=== PATIENT | female | born 1975 | race Caucasian/White ===

== ENCOUNTER 2016-09-27 17:35 | Emergency (ER) | payer SELFPAY ==
[~2016-09-27] VITALS: Ht 142.2 cm; Wt 122.0 kg
[2016-09-27 17:39] VITALS: BP 167/80; PULSE 80; RESP 18; TEMP 98.9; O2SAT 96
--- NOTE | 2016-09-27 17:41 | PD ---
Physical Exam Time Seen by Provider: 17:39 Narrative 41 y/o female presents for evaluation of headache, dizziness since yesterday. Vital signs reviewed. Seen at triage desk. Awaiting bed placement. Data Data Last Documented VS Vital Signs Date Time Temp Pulse Resp B/P Pulse Ox O2 Delivery O2 Flow Rate FiO2 09/27/16 17:39 98.9 80 18 167/80 96 MDM Medical Record Reviewed: Yes Supervised Visit with HUSSAIN: Bk Orozco September 27, 2016 17:41
[2016-09-27] MEDS ORDERED: IBUPROFEN 800 MG TAB PO ONE (18:15)
[2016-09-27] MEDS ORDERED: MECLIZINE HCL 25 MG TAB PO ONE (18:15)
--- NOTE | 2016-09-27 18:20 | PD ---
HPI Chief Complaint: Dizziness Time Seen by Provider: 18:14 Travel History International Travel<30 days: No Contact w/Intl Traveler<30days: No Traveled to known affect area: No History of Present Illness HPI Patient is 41-year-old female presenting to emergency for evaluation of dizziness and headache. Patient states headache started yesterday evening, she felt dizzy almost as if she will had been drinking alcohol. The bed felt better upon awakening then later in the morning it started up again with the dizziness which was worse with head movement. Patient states she feels as if the room is spinning. She had not taken anything for the headache pain, she normally takes Tylenol. Patient states that she didn't want take any medications for the pain because she wants to get a job and doesn't want the medications to interfere with that. Patient reports history of depression, she has stopped all of her psych medications. She recently moved to the area and has no primary care provider. PFSH Past Medical History Depression: Yes Insomnia: Yes ?: Not Tubal Ligation: Yes Past Surgical History Section: Yes Cholecystectomy: Yes Hysterectomy: Yes Other Surgery: Yes (TUMOR REMOVAL LEFT ARM) Social History Alcohol Use: Yes (OCCASSIOANL) Tobacco Use: Yes (05/30 PPD) Substance Use: No Allergies-Medications (Allergen,Severity, Reaction): Coded Allergies: Fioricet (Verified Allergy, Severe, Hives, 09/27/16) Geodon (Verified Allergy, Severe, Chest Pain, 09/27/16) Sulfa (Verified Allergy, Severe, Nausea/Vomiting, 09/27/16) Uncoded Allergies: limictal (Adverse Reaction, Severe, Swelling, 09/27/16) Review of Systems Except as stated in HPI: all other systems reviewed are Neg HENT: Positive: Headaches Neurologic: Positive: Dizziness, Headache, No: Focal Abnormalities, Change in Mentation, Slurred Speech, Paresthesia, Sensory Disturbance Psychiatric: Positive: Depression Physical Exam Narrative GENERAL: Overweight, well-developed, alert female. Appears tearful, in no acute distress. SKIN: Focused skin assessment warm/dry. HEAD: Atraumatic. Normocephalic. EYES: Pupils equal and round. No scleral icterus. No injection or drainage. ENT: No nasal bleeding or discharge. Mucous membranes pink and moist. NECK: Trachea midline. No JVD. CARDIOVASCULAR: Regular rate and rhythm. No murmur appreciated. RESPIRATORY: No accessory muscle use. Clear to auscultation. Breath sounds equal bilaterally. GASTROINTESTINAL: Abdomen soft, non-tender, nondistended. Hepatic and splenic margins not palpable. MUSCULOSKELETAL: No obvious deformities. No clubbing. No cyanosis. No edema. NEUROLOGICAL: Awake and alert. No obvious cranial nerve deficits. Motor grossly within normal limits. Normal speech. PSYCHIATRIC: Depressed mood and affect; insight and judgment normal. Data Data Last Documented VS Vital Signs Date Time Temp Pulse Resp B/P Pulse Ox O2 Delivery O2 Flow Rate FiO2 09/27/16 19:40 68 18 136/70 92 20 171/96 85 18 165/84 09/27/16 17:59 Room Air 09/27/16 17:[address] Brain W/O Iv Contrast(Rout) (09/27/16 ) Meclizine (Antivert) (09/27/16 18:15) Ibuprofen (Motrin) (09/27/16 18:15) MDM Medical Decision Making Medical Screen Exam Complete: Yes Emergency Medical Condition: Yes Interpretation(s) Vital Signs Date Time Temp Pulse Resp B/P Pulse Ox O2 Delivery O2 Flow Rate FiO2 09/27/16 17:59 18 Room Air 09/27/16 17:39 98.9 80 18 167/80 96 Differential Diagnosis Dizziness versus migraine versus BPV versus TIA versus CVA versus other Narrative Course Patient is a 41-year-old female presenting to the emergency department for evaluation of dizziness and headache. Patient reports it feels as if the room is spinning. Her vital signs are stable, orthostatic vital signs are negative. CT scan ordered and pending. Patient given meclizine and ibuprofen. CT scan of brain is negative for acute abnormality. She was discharged home with a prescription for meclizine and Valium. She is encouraged to follow-up with a primary doctor, she was given written information regarding the [facility]. She was encouraged to return to emergency department immediately for any new or worsening symptoms. Patient and mother verbalized understanding of these instructions. Furthermore patient was encouraged to seek psychiatric help for her depression. Patient is not suicidal or homicidal. She has a good support system at home. Patient is stable for discharge. Diagnosis Primary Impression: Vertigo Additional Impression: Elevated blood pressure reading Referrals: [facility] 2 days Patient Instructions: Benign Paroxysmal Positional Vertigo (ED), General Instructions Additional Instructions: Follow-up at [facility] Take medications as directed and as needed Return to emergency department for any new or worsening symptoms Her blood pressure was elevated in the emergency department, follow-up with a primary doctor for further evaluation and management if needed. Med/Other Pt SpecificInfo: Prescription(s) given Scripts Meclizine 25 Mg Tab25 Mg PO TID PRN (VERTIGO) 10 Days Ref 0 Prov:Mary Modi 09/27/16 Diazepam (Valium)5 Mg Tab5 Mg PO BID PRN (VERTIGO) #10 TAB Ref 0 Prov:Mohit Sandhu MD 09/27/16 Disposition: 01 DISCHARGE HOME Condition: Stable Mary Modi September 27, 2016 18:20
[2016-09-27 19:40] VITALS: BP_SYST 136; BP_SYST 165; BP_SYST 171; BP_DIAS 70; BP_DIAS 84; BP_DIAS 96; RESP 18; RESP 20
--- NOTE | 2016-09-27 20:19 | RADRPT ---
EXAM DATE/TIME: 09/27/2016 19:29 [facility] COMPARISON: No previous studies available for comparison. INDICATIONS : Dizziness. RADIATION DOSE: 42.58 CTDIvol (mGy) MEDICAL HISTORY : None SURGICAL HISTORY : Hysterectomy. ENCOUNTER: Initial ACUITY: 2 days PAIN SCALE: 4/10 LOCATION: cranial TECHNIQUE: Multiple contiguous axial images were obtained of the head. Using automated exposure control and adj ustment of the mA and/or kV according to patient size, radiation dose was kept as low as reasonably a chievable to obtain optimal diagnostic quality images. FINDINGS: CEREBRUM: The ventricles are normal for age. No evidence of midline shift, mass lesion, hemorrhage or acute in farction. No extra-axial fluid collections are seen. POSTERIOR FOSSA: The cerebellum and brainstem are intact. The 4th ventricle is midline. The cerebellopontine angle i s unremarkable. EXTRACRANIAL: The visualized portion of the orbits is intact. SKULL: The calvaria is intact. No evidence of skull fracture. CONCLUSION: No acute disease. Nam Chase MD on September 27, 2016 at 20:16 Board Certified Radiologist. This report was verified electronically.
[2016-09-27] MEDS ORDERED: DIAZ5 PO (20:32)
[2016-09-27] MEDS ORDERED: MECL-62 PO (20:33)
== END 2016-09-27 21:15 | disposition home or self-care (01) ==
LOC: NEPD 17:35
DX: R42 Dizziness and giddiness (principal); R03.0 Elevated blood-pressure reading, without diagnosis of hypertension; F17.210 Nicotine dependence, cigarettes, uncomplicated
CPT/HCPCS: 70450

== ENCOUNTER 2017-04-16 20:43 | Emergency (ER) | payer SELFPAY ==
[~2017-04-16] VITALS: Ht 144.8 cm; Wt 97.0 kg
[~2017-04-16 20:43] MED LIST: DIAZ5 PO; MECL-62 PO
[2017-04-16 20:44] VITALS: BP 136/91; PULSE 82; RESP 16; TEMP 98.5; O2SAT 98
[2017-04-16] MEDS ORDERED: WELL200T PO (21:02)
[2017-04-16] MEDS ORDERED: FENO54TA PO (21:02)
--- NOTE | 2017-04-16 21:07 | PD ---
HPI . Knee injury Chief Complaint: Injury Time Seen by Provider: 20:58 Travel History International Travel<30 days: No Contact w/Intl Traveler<30days: No Traveled to known affect area: No History of Present Illness HPI This patient presents with a chief complaint of left knee injury. She twisted it getting out of a car. It occurred just prior to arrival. She states that she came straight here after it happened. Therefore, she has not done anything for it prior to arrival. She is unable to comment on whether or not there are any modifying factors. She rates the pain 8/10. She states that she has some numbness on the left lateral aspect of her thomas. PFSH Past Medical History Depression: Yes Insomnia: Yes Immunizations Current: Yes Tetanus Vaccination: Unknown Influenza Vaccination: No ?: Not Tubal Ligation: Yes Past Surgical History Section: Yes Cholecystectomy: Yes Hysterectomy: Yes Other Surgery: Yes (TUMOR REMOVAL LEFT ARM) Social History Alcohol Use: Yes (OCCASSIOANL) Tobacco Use: Yes (1/2 PPD) Substance Use: No Allergies-Medications (Allergen,Severity, Reaction): Coded Allergies: Sulfa (Sulfonamide Antibiotics) (Verified Allergy, Severe, 04/16/17) acetaminophen (Verified Allergy, Severe, Hives, 04/16/17) butalbital (Verified Allergy, Severe, Hives, 04/16/17) caffeine (Verified Allergy, Severe, Hives, 04/16/17) ziprasidone (Unverified Allergy, Severe, Chest Pain, 04/16/17) Uncoded Allergies: limictal (Adverse Reaction, Severe, Swelling, 09/27/16) Reported Meds & Prescriptions Reported Meds & Active Scripts Active Valium (Diazepam) 5 Mg Tab 5 Mg PO BID PRN Reported Fenofibrate 54 Mg Tab 75 Mg PO DAILY Wellbutrin SR 12 HR (Bupropion HCl) 200 Mg Tab 300 Mg PO BID Review of Systems Except as stated in HPI: all other systems reviewed are Neg Musculoskeletal: Positive: Arthralgias Neurologic: Positive: Paresthesia Physical Exam Narrative GENERAL: Awake and alert and in no acute distress. SKIN: Warm and dry. No bruising or abrasions noted. HEAD: Normocephalic/atraumatic. EYES: Pupils are equal. Extraocular movements are intact. NECK: Normal range of motion. CARDIOVASCULAR: Regular rate and rhythm. RESPIRATORY: Nonlabored respirations. MUSCULOSKELETAL: Left knee is normally aligned. There is no swelling. There is no point tenderness. The knee is stable. She is distally neurovascularly intact. NEUROLOGICAL: Nonfocal. PSYCHIATRIC: Appropriate mood and affect. Data Data Last Documented VS Vital Signs Date Time Temp Pulse Resp B/P (MAP) Pulse Ox O2 Delivery O2 Flow Rate FiO2 04/16/17 20:44 98.5 82 16 136/91 (106) 98 Room Air Orders Orders Knee, Complete (4vws) (04/16/17 21:03) Ibuprofen (Motrin) (04/16/17 21:15) MDM Medical Decision Making Medical Screen Exam Complete: Yes Emergency Medical Condition: Yes Differential Diagnosis Differential diagnosis of extremity trauma includes but is not limited to fracture, sprain or strain, dislocation, contusion Narrative Course This patient presents with a right knee injury. X-rays pending. Left knee series within normal limits. Diagnosis Primary Impression: Left knee sprain Qualified Codes: S83.92XA - Sprain of unspecified site of left knee, initial encounter Patient Instructions: General Instructions, Knee Sprain (DC), RICE Therapy (ED) Disposition: 01 DISCHARGE HOME Condition: Stable Lotus Velasquez MD Apr 16, 2017 21:07
[2017-04-16] MEDS ORDERED: IBUPROFEN 800 MG TAB PO ONE (21:15)
--- NOTE | 2017-04-16 21:21 | RADRPT ---
EXAM DATE/TIME: 04/16/2017 21:10 [facility] COMPARISON: No previous studies available for comparison. INDICATIONS : Left anterior knee pain, twisted MEDICAL HISTORY : SURGICAL HISTORY : Hysterectomy. ENCOUNTER: Initial ACUITY: 1 day PAIN SCORE: 7/10 LOCATION: Left Knee FINDINGS: 4 views left knee. Bone alignment within normal limits. No evidence of fracture. No evidence of join t narrowing. No evidence of joint effusion. CONCLUSION: Left knee series within normal limits. Bethel Putnam MD on April 16, 2017 at 21:19 Board Certified Radiologist. This report was verified electronically.
== END 2017-04-16 21:52 | disposition home or self-care (01) ==
LOC: NEPD 20:43
DX: S83.92XA Sprain of unspecified site of left knee, initial encounter (principal); R20.0 Anesthesia of skin; F32.9 Major depressive disorder, single episode, unspecified; F17.200 Nicotine dependence, unspecified, uncomplicated; X50.1XXA Overexertion from prolonged static or awkward postures, initial encounter; Z79.899 Other long term (current) drug therapy; Z88.2 Allergy status to sulfonamides; Z88.6 Allergy status to analgesic agent; Z88.8 Allergy status to other drugs, medicaments and biological substances
CPT/HCPCS: 73564; 99283